=== PATIENT | male | born 1985 | race Caucasian/White ===

== ENCOUNTER 2017-12-23 23:15 | Emergency (ER) | payer MEDICARE, OTHER ==
[~2017-12-23] VITALS: Ht 175.3 cm; Wt 81.2 kg
[2017-12-23 23:17] VITALS: BP 123/101
--- NOTE | 2017-12-23 23:17 | NUR ---
PT [facility]EL[facility] BLS. TAKEN TO BED 8
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
--- NOTE | 2017-12-24 00:13 | NUR ---
Dr. Law evaluating patient at bedside.
[2017-12-24] MEDS ORDERED: NACL 0.9% 1,000 ML IV ONE ×2 (00:18→01:15)
[2017-12-24] MEDS ORDERED: KETOROLAC 30 MG/ML VIAL IVP ONE (00:20)
[2017-12-24] MEDS ORDERED: ONDANSETRON 4 MG/2 ML VIAL IVP ONE ×2 (00:20→02:10)
[2017-12-24 00:38] LABS: BASOPHILS % (AUTO) 0.4 % (0.0-2.0); EOSINOPHILS # (AUTO) 0.1 K/uL (0-0.4); EOSINOPHILS % (AUTO) 2.4 % (0.0-4.0); HEMATOCRIT 43.5 % (36-52); HEMOGLOBIN 15.3 g/dL (12.0-18.0); LYMPHOCYTES % (AUTO) 50.5 % (20.5-51.1); MEAN CORPUSCULAR HEMOGLOBIN 31 pg (27-31); MEAN CORPUSCULAR HGB CONC 35 g/dL (33-37); MEAN CORPUSCULAR VOLUME 88.8 fL (80-94); MONOCYTES # (AUTO) 0.4 K/uL (0.8-1.0); MONOCYTES % (AUTO) 6.4 % (1.7-9.3); NEUTROPHILS # (AUTO) 2.4 K/uL (1.8-7.7); NEUTROPHILS % (AUTO) 40.3 % (42.2-75.2); PLATELET COUNT (AUTO) 266 K/uL (140-450); RED CELL DISTRIBUTION WIDTH 13.1 % (11.6-13.7)
[2017-12-24] MEDS ORDERED: ACETAMINOPHEN EXTRA STRENGTH 500 MG TAB ONE (00:51)
[2017-12-24 00:53] LABS: ANION GAP 15.2 (8-16); CARBON DIOXIDE 24.1 mmol/L (21-32); POTASSIUM 3.3 mmol/L (3.5-5.1)
[2017-12-24 00:54] LABS: BARBITURATE, URINE NEG. ng/ml (NEG <=200); BENZODIAZEPINE, URINE POS. ng/mL (NEG <=200); CANNABINOID, URINE NEG. ng/mL (NEG <=50); COCAINE, URINE NEG. ng/mL (NEG <=300); OPIATE, URINE NEG. ng/mL (NEG <=2000); PHENCYCLIDINE SCREEN,URINE NEG. ng/mL (NEG <=25)
[2017-12-24 00:54] LABS: PROTHROMBIN TIME 10.8 secs (10.8-13.4)
[2017-12-24 00:59] LABS: ALBUMIN 4.2 g/dL (3.4-5.0); TOTAL BILIRUBIN 1.6 mg/dL (0.0-1.0)
[2017-12-24] MEDS ORDERED: ACETAMINOPHEN EXTRA STRENGTH 500 MG TAB PO ONE (01:00)
[2017-12-24] MEDS ORDERED: fentaNYL 0.05 MG/ML VIAL IVP ONE (01:20)
--- NOTE | 2017-12-24 03:50 | NUR ---
PATIENT STICKING FINGER DOWN THROAT AT THIS TIME. PATIENT HAS BEEN ADVISED TO NOT STICK HIS FINGER DOWN HIS THROAT TO THROW UP.
[2017-12-24] MEDS ORDERED: CLINDAMYCIN 600 MG/4 ML VIAL IM ONE (04:10)
[2017-12-24 04:45] VITALS: BP 127/96
--- NOTE | 2017-12-24 04:45 | NUR ---
Patient discharged with v/s stable. Written and verbal after care instructions given and explained. Patient alert, oriented and verbalized understanding of instructions. Ambulatory with steady gait. All questions addressed prior to discharge. ID band removed. Patient advised to follow up with PMD. Rx of NORCO, ZOFRAN, NAPROSYN, CLINDAMYCIN given. Patient educated on indication of medication including possible reaction and side effects. Opportunity to ask questions provided and answered.
== END 2017-12-24 04:45 | disposition home or self-care (01) ==
LOC: MED 23:15
DX: S80.811A Abrasion, right lower leg, initial encounter (principal); I10 Essential (primary) hypertension; Z88.1 Allergy status to other antibiotic agents; Z88.8 Allergy status to other drugs, medicaments and biological substances; Z90.49 Acquired absence of other specified parts of digestive tract; Z88.6 Allergy status to analgesic agent; W45.8XXA Other foreign body or object entering through skin, initial encounter; Y93.89 Activity, other specified; Y92.89 Other specified places as the place of occurrence of the external cause; Y99.8 Other external cause status
CPT/HCPCS: 36415; 73590; 80053; 80305; 83605; 85025; 85610; 87040; 90471; 90715; 96372; 96374; 96375; 96376; 99285; G0482; J1885; J2405; J3010; J3490; Q0092